=== PATIENT | male | born 1990 | race Caucasian/White ===

== ENCOUNTER 2016-08-19 15:48 | Emergency (ER) | payer BC ==
[2016-08-19 15:55] VITALS: BP 135/74; BMI 30.4
[2016-08-19] MEDS ORDERED: PHENERGAN INJ 25 MG IV ONE (18:40)
[2016-08-19] MEDS ORDERED: TORADOL 30 MG VIAL IVP ONE (18:41)
[2016-08-19] MEDS ORDERED: DECADRON INJ IM ONE (18:41)
[2016-08-19] MEDS ORDERED: NS 500 ML IV 500 ML IV ONE (18:42)
--- NOTE | 2016-08-19 18:43 | DR.HEADACH ---
HPI - Time Seen Time seen: 18:35 - Primary Care Physician Primary Care Physician: NFD - Complaint/Symptoms Chief Complaint Doctors Comments: Patient presents with complaint of a migraine headache onset earlier today. He has had similar headaches before and relieved by Fioricet. He reports the the headache occipital radiating to forehead associated with vomiting. Made better by quietness Chief Complaint:: MIGRAINE, N/V - Source History Provided: Patient - Mode of Arrival Mode of Arrival: Ambulatory - Timing Onset of Chief Complaint: 08/19/16 - Location Headache Location: Frontal - Severity Headache Severity: Severe PMH - PMH Past Medical History: No Past Medical History: Headaches Past Surgical History: Yes Surgical History: Lithotripsy - Family History History of Family Medical Conditions: Yes Family Medical History: Cancer, [place], Hypertension - Social History Does any household member use tobacco: No Alcohol Use: None, Occasionally Do you use any recreational Drugs:: No Lives With: Spouse Lives Where: Home - infectious screening In the last 2 months have you had wt loss of >10#?: NO Have you had fever, night sweats or hemotysis?: No Have you traveled outside the country in the last 6 months?: No Isolation: Standard ROS - Review of Systems Constitutional: No Symptoms Reported Eyes: No Symptoms Reported ENTM: No Symptoms Reported Respiratoy: No Symptoms Reported Cardiovascular: No Symptoms Reported Gastrointestinal/Abdominal: No Symptoms Reported Genitourinary: No Symptoms Reported Neurological: No Symptoms Reported Musculoskeletal: No Symptoms Reported Integumentary: No Symptoms Reported Hematologic/Lymphatic: No Symptoms Reported Endocrine: No Symptoms Reported Psychiatric: No Symptoms Reported All Other Systems: Reviewed and Negative PE - Vital Signs Vitals: Temperature 97.8 F Pulse Rate 143 Respiratory Rate 18 Blood Pressure 135/74 O2 Sat by Pulse Oximetry 96 - General Limitations: No Limitations General Appearance: Alert, In No Apparent Distress - Head Head Exam: Normal Inspection, Atraumatic - Eyes Eye exam: Normal Appearance, PERRL, EOMI Eyelids: Normal Inspection: Bilateral Pupils: Regular, Round: Bilateral Sclera/Conjunctival: Normal Inspection: Bilateral - ENT ENT Exam: Normal Exam, Normal Oropharynx External Ear Exam: Normal External Inspection TM/Canal Exam: Bilateral Normal Nose Exam: Normal Nose Exam, Sinus Tenderness Mouth Exam: Normal Inspection Teeth Exam: Normal Inspection Throat Exam: Normal Inspection - Neck Neck Exam: Normal Inspection - Chest Chest Inspection: Normal Inspection - Respiratory Respiratory Exam: Normal Lung Sounds Bilat Respiratory Exam: Bilateral Clear to Auscultation - Cardiovascular Cardiovascular Exam: Regular Rate, Normal Rhythm - Abdominal Exam Abdominal Exam: Normal Inspection, Normal Bowel Sounds Abdominal Tenderness: negative: RUQ, RLQ, LUQ, LLQ, Epigastrium, Suprapubic, Diffuse, Mild, Moderate, Severe, Other - Extremities Extremities Exam: Normal Inspection, Full ROM - Back Back Exam: Normal Inspection, Full ROM - Neurologic Neurological Exam: Alert, Oriented X3, CN II-XII Intact - Psychiatric Psychiatric Exam: Normal Affect, Normal Mood - Skin Skin Exam: Warm, Dry, Intact - Diagnosis Discharge Problem: Migraine Qualifiers: Migraine type: without aura Status migrainosus presence: without status migrainosus Intractability: not intractable Qualified Code(s): G43.009 - Migraine without aura, not intractable, without status migrainosus - Discharge Plan Condition: Good - Follow ups/Referrals Follow ups/Referrals: NFD,None [Primary Care Provider] - 3 days - Instructions
[2016-08-19] MEDS ORDERED: PHENERGAN INJ 25 MG ONE (18:46)
[2016-08-19] MEDS ORDERED: TORADOL 30 MG VIAL ONE (18:46)
[2016-08-19] MEDS ORDERED: NS 1000 ML 1,000 ML ONE (18:46)
[2016-08-19] MEDS ORDERED: DECADRON INJ ONE (18:46)
[2016-08-19] MEDS ORDERED: FIORICET TAB PO ONE ×2 (20:09→20:11)
== END 2016-08-19 20:20 | disposition home or self-care (01) ==
LOC: ER 15:48
DX: G43.009 Migraine without aura, not intractable, without status migrainosus (principal)
CPT/HCPCS: 96365; 96367; 96372; 96374; 96375; 99283; A4222; J1100; J1885; J2550

== ENCOUNTER 2016-09-02 04:49 | Emergency (ER) | payer BC ==
[2016-09-02 05:00] VITALS: BMI 30.4
[2016-09-02] MEDS ORDERED: NUBAIN INJ 10 IVP ONE (05:05)
[2016-09-02] MEDS ORDERED: PHENERGAN INJ 25 MG IVP ONE (05:05)
[2016-09-02 05:08] LABS: BILIRUBIN,URINE NEGATIVE (NEGATIVE); BLOOD/HEMOGLOBIN,URINE 5+ (NEGATIVE); GLUCOSE, URINE NEGATIVE (NEGATIVE); KETONES,URINE NEGATIVE (NEGATIVE); LEUKOCYTE ESTERASE ,URINE NEGATIVE (NEGATIVE); NITRITES,URINE NEGATIVE (NEGATIVE); PROTEIN,URINE 1+ (NEGATIVE); UROBILINOGEN,URINE NORMAL (NORMAL)
[2016-09-02] MEDS ORDERED: NUBAIN INJ 10 ONE ×2 (05:09→07:05)
[2016-09-02] MEDS ORDERED: PHENERGAN INJ 25 MG ONE ×2 (05:09→07:06)
[2016-09-02] MEDS ORDERED: NS 1000 ML 1,000 ML ONE (05:23)
[2016-09-02 05:25] LABS: APPEARANCE,URINE HAZY (CLEAR); BACTERIA,URINE NEGATIVE /HPF (NEGATIVE); COLOR,URINE YELLOW (YELLOW); RBC,URINE 80-100 /HPF (NEGATIVE); SQUAMOUS EPITHELIAL CELL,UR FEW /HPF (NEGATIVE)
[2016-09-02] MEDS ORDERED: NS 1000 ML 1,000 ML IV ONE (05:27)
[2016-09-02 05:30] VITALS: BP 125/67
--- NOTE | 2016-09-02 05:32 | DR.GENAD ---
HPI - PCP Primary Care Physician: Lauren Lopez - HPI Comment HPI Comment: Abdomianl pain- Lt. flank - Complaint/Symptoms Chief Complaint Doctors Comments: Lt. flank pain onset last evening (about 1800 hrs.) during family / holiday gathering. It was a sudden sharp ache. Vety brief in duration. Again, at home he had a repeat attack at 2300 hrs. This was a dull ache in nature and it has been pretty steady since. He took a hot shower and that helped as he was able to fall asleep at about 0100 hrs. today. The pain awakened him again this a.m. and his spouse persuaded him to come to the [facility]. He relates a hx. of nephrolithiasis. Chief Complaint:: kidney stone Self Treatment fo Chief Complaint: Hot shower - Nurses notes reviewed Nurses Notes Review: Yes - Source History Provided: Patient - Mode of Arrival Mode of Arrival: Ambulatory - Timing Onset of Chief Complaint: 09/02/16 Came on: Gradually - Duration Duration: Constant How lon Duration: Hours - Location Location: Lt. flank - Severity Severity: Severe - Modifying Factors Worsens:: moving Improves:: hot shower, earlier - Associated Signs and Symptoms Associated Signs and Symptoms: nausea PMH - PMH Past Medical History: Yes Past Medical History: Headaches, Kidney Stones Past Medical History Comment: Nephrolithiasis Past Surgical History: Yes Surgical History: Lithotripsy - Family History History of Family Medical Conditions: Yes Family Medical History: Cancer, [place], Hypertension - Social History Does patient currently use any type of tobacco product: No Have you used tobacco products in the last 12 months: No Type of Tobacco Use: None Does any household member use tobacco: No Alcohol Use: Occasionally Do you use any recreational Drugs:: No Lives With: Family Lives Where: Home - infectious screening In the last 2 months have you had wt loss of >10#?: NO Have you had fever, night sweats or hemotysis?: No Have you traveled outside the country in the last 6 months?: No Isolation: Standard ROS - Review of Systems Eyes: No Symptoms Reported ENTM: No Symptoms Reported Respiratoy: No Symptoms Reported Cardiovascular: No Symptoms Reported Gastrointestinal/Abdominal: Nausea Genitourinary: See HPI Neurological: No Symptoms Reported Musculoskeletal: No Symptoms Reported Integumentary: No Symptoms Reported Hematologic/Lymphatic: No Symptoms Reported Endocrine: No Symptoms Reported Psychiatric: No Symptoms Reported PE - Vital Signs Vitals: Temperature 98.8 F Pulse Rate 101 Respiratory Rate 24 Blood Pressure 125/67 O2 Sat by Pulse Oximetry 99 - General Limitations: No Limitations General Appearance: Alert, In Distress (appears to be in pain) - Head Head Exam: Normal Inspection - Eyes Eye exam: Normal Appearance, PERRL, EOMI - ENT ENT Exam: Normal Exam External Ear Exam: Normal External Inspection TM/Canal Exam: Bilateral Normal Nose Exam: Normal Nose Exam Mouth Exam: Normal Inspection Throat Exam: Normal Inspection - Neck Neck Exam: Normal Inspection, Full ROM - Chest Chest Inspection: Normal Inspection - Respiratory Respiratory Exam: Normal Lung Sounds Bilat Respiratory Exam: Bilateral Clear to Auscultation - Cardiovascular Cardiovascular Exam: Regular Rate, Normal Rhythm, +S1, +S2 - Abdominal Exam Abdominal Exam: Normal Inspection, Normal Bowel Sounds, Soft, Tenderness (Lt flank. LT. CVA tenderness present.) Abdominal Tenderness: Other (Lt. flank) - Extremities Extremities Exam: Normal Inspection, Full ROM - Back Back Exam: Normal Inspection - Neurologic Neurological Exam: Alert, Oriented X3 - Psychiatric Psychiatric Exam: Normal Affect, Normal Mood - Skin Skin Exam: Warm, Dry, Intact, Normal Color MDM - Differential Diagnosis Differential Diagnosis: Nephro-uretrolithiasis Course - Treatment Treatment: IVF, analgesic, anti-emetic - Reevaluation 1st: Improved (at 0615 hrs.) 2nd: Unchanged - Consultation Called: 06:35 Call Returned: 06:35 Consultation Comments: The pts'. presentation and findings were reviewed with Dr. Timmons, whom the pt. had seen in the past for earlier procedure. Dr. Timmons agrees to see him for care at [facility] for evaluation, therapy and intervention if needed. He asks that he be d/c and come by POV or ambulance to the hospital there. He should have copies od his records, tests and radiology CD with him. He should be NPO - Education/Counseling Education/Counseling: Patient, Family, Education Educated On: Treatment, Diagnosis, Prognosis, Needs for Follow Up (Go to Dr. Timmons's office to await admission to [place], [place] this morning.) ROR - Labs Reviewed Result Diagrams: 09/02/16 05:29 09/02/16 05:29 Laboratory: WBC 10.0 X10^3/uL (3.6-10.0) 09/02/16 05:29 RBC 4.76 X10^6/uL (4.7-6.0) 09/02/16 05:29 Hgb 15.1 g/dL (13.5-18.0) 09/02/16 05:29 Hct 42.1 % (42.0-54.0) 09/02/16 05:29 MCV 88.3 fL (80.0-100.0) 09/02/16 05:29 MCH 31.7 pg (27.0-34.0) 09/02/16 05:29 MCHC 35.9 g/dL (33.0-35.0) H 09/02/16 05:29 RDW 12.8 % (11.6-16.5) 09/02/16 05:29 Plt Count 260 X10^3/uL (150.0-450.0) 09/02/16 05:29 MPV 8.6 fL (7.4-11.0) 09/02/16 05:29 Neut % 69.7 % (42.0-75.0) 09/02/16 05:29 Lymph % 23.3 % (21.0-51.0) 09/02/16 05:29 Whiteside % 6.0 % (0.0-13.0) 09/02/16 05:29 Eos % 0.7 % (0.9-2.9) L 09/02/16 05:29 Baso % 0.3 % (0.2-1.0) 09/02/16 05:29 Neut # 7.0 x10^3/uL (2.2-4.8) H 09/02/16 05:29 Lymph # 2.3 X10^3/uL (1.3-2.9) 09/02/16 05:29 Whiteside # 0.6 x10^3/uL (0.3-0.8) 09/02/16 05:29 Eos # 0.1 x10^3/uL (0.0-0.2) 09/02/16 05:29 Baso # 0.0 X10^3/uL (0.0-0.1) 09/02/16 05:29 Absolute Nucleated RBC 0.0 /100WBC 09/02/16 05:29 Sodium 143 mmol/L (136-145) 09/02/16 05:29 Corrected Sodium 144 mmol/L (136-145) 09/02/16 05:29 Potassium 3.9 mmol/L (3.5-5.1) 09/02/16 05:29 Chloride 105 mmol/L (98-107) 09/02/16 05:29 Carbon Dioxide 26.8 mmol/L (21-32) 09/02/16 05:29 BUN 12 mg/dL (7-18) 09/02/16 05:29 Creatinine 1.26 mg/dL (0.70-1.30) 09/02/16 05:29 Est GFR (MDRD) Af Amer > 60 (>60) 09/02/16 05:29 Est GFR (MDRD) Non-Af > 60 (>60) 09/02/16 05:29 Glucose 122 mg/dL (65-99) H 09/02/16 05:29 Calcium 8.8 mg/dL (8.5-10.1) 09/02/16 05:29 Corrected Calcium TNP 09/02/16 05:29 Total Bilirubin 0.40 mg/dL (0.2-1.0) 09/02/16 05:29 AST 31 Units/L (15-37) 09/02/16 05:29 ALT 75 Units/L (12-78) 09/02/16 05:29 Alkaline Phosphatase 80 Units/L (46-116) 09/02/16 05:29 Total Protein 7.6 g/dL (6.4-8.2) 09/02/16 05:29 Albumin 4.1 g/dL (3.4-5.0) 09/02/16 05:29 Globulin 3.5 g/dL (2.5-4.5) 09/02/16 05:29 Albumin/Globulin Ratio 1.2 Ratio (1.1-2.1) 09/02/16 05:29 Amylase 45 Units/L (25-115) 09/02/16 05:29 Lipase 94 Units/L (73-393) 09/02/16 05:29 Specimen Type Clean catch urine 09/02/16 05:00 Urine Color Yellow (YELLOW) 09/02/16 05:00 Urine Appearance Hazy (CLEAR) 09/02/16 05:00 Urine pH 7.0 (5.0 - 8.0) 09/02/16 05:00 Ur Specific [place] 1.010 (1.000-1.030) 09/02/16 05:00 Urine Protein 1+ (NEGATIVE) 09/02/16 05:00 Urine Glucose (UA) Negative (NEGATIVE) 09/02/16 05:00 Urine Ketones Negative (NEGATIVE) 09/02/16 05:00 Urine Occult Blood 5+ (NEGATIVE) 09/02/16 05:00 Urine Nitrite Negative (NEGATIVE) 09/02/16 05:00 Urine Bilirubin Negative (NEGATIVE) 09/02/16 05:00 Urine Urobilinogen Normal (NORMAL) 09/02/16 05:00 Ur Leukocyte Esterase Negative (NEGATIVE) 09/02/16 05:00 Urine RBC 80-100 /HPF (NEGATIVE) 09/02/16 05:00 Urine WBC 0-3 /HPF (NEGATIVE) 09/02/16 05:00 Ur Squamous Epith Cells Few /HPF (NEGATIVE) 09/02/16 05:00 Urine Bacteria Negative /HPF (NEGATIVE) 09/02/16 05:00 Ur Culture Indicated? No/not indicated 09/02/16 05:00 - XRAY XRAY Interpreted by: Radiologist (A 6.4 mm obstructing proximal Lt. ureteral stone; a 1 mm non-obstructing Lt. mid-pole ernal stone. ) - Diagnosis Discharge Problem: Left nephrolithiasis, Ureterolithiasis, Ureter colic - Discharge Plan Disposition: Disch/Tx to Hospital Condition: Stable - Follow ups/Referrals Follow ups/Referrals: DAMIEN,Beatris [Primary Care Provider] - 3 days (today) WALTER TIMMONS [CONSULTING PHYSICIAN] - 1 day (to be seen today) - Instructions
[2016-09-02 05:51] LABS: ALANINE AMINOTRANSFERASE 75 Units/L (12-78); ALBUMIN 4.1 g/dL (3.4-5.0); ALKALINE PHOSPHATASE 80 Units/L (46-116); AMYLASE 45 Units/L (25-115); ASPARTATE AMINO TRANSFERASE 31 Units/L (15-37); BLOOD UREA NITROGEN 12 mg/dL (7-18); CALCIUM 8.8 mg/dL (8.5-10.1); CARBON DIOXIDE 26.8 mmol/L (21-32); CHLORIDE 105 mmol/L (98-107); COR NA(FOR HYPERGLY) 144 mmol/L (136-145); CREATININE 1.26 mg/dL (0.70-1.30); GLUCOSE 122 mg/dL (65-99); LIPASE 94 Units/L (73-393); SODIUM 143 mmol/L (136-145); TOTAL PROTEIN 7.6 g/dL (6.4-8.2); eGFR BLACK RACES > 60 (>60); eGFR NON BLACK RACES > 60 (>60)
[2016-09-02 05:57] LABS: BASOPHILS % (AUTO) 0.3 % (0.2-1.0); EOSINOPHILS # (AUTO) 0.1 x10^3/uL (0.0-0.2); EOSINOPHILS % (AUTO) 0.7 % (0.9-2.9); HEMATOCRIT 42.1 % (42.0-54.0); HEMOGLOBIN 15.1 g/dL (13.5-18.0); LYMPHOCYTES # (AUTO) 2.3 X10^3/uL (1.3-2.9); LYMPHOCYTES % (AUTO) 23.3 % (21.0-51.0); MEAN CORPUSCULAR HEMOGLOBIN 31.7 pg (27.0-34.0); MEAN CORPUSCULAR HGB CONC 35.9 g/dL (33.0-35.0); MEAN CORPUSCULAR VOLUME 88.3 fL (80.0-100.0); MEAN PLATELET VOLUME 8.6 fL (7.4-11.0); MONOCYTES # (AUTO) 0.6 x10^3/uL (0.3-0.8); NEUTROPHILS % (AUTO) 69.7 % (42.0-75.0); PLATELET COUNT 260 X10^3/uL (150.0-450.0); RED BLOOD COUNT 4.76 X10^6/uL (4.7-6.0); RED CELL DISTRIBUTION WIDTH 12.8 % (11.6-16.5)
--- NOTE | 2016-09-02 06:24 | CT ---
HISTORY: Abdominal pain Study: CT abdomen pelvis without contrast Comparison: July 06, 2013 June 30, 2013 Technique: axial non contrast images with coronal and sagittal reformats. Dose reduction procedures were used with MA/kv adjusted for body size. Findings: The lung bases are clear. The liver, adrenal glands, and pancreas are within normal limits to the l imitations of an unenhanced examination. There is a 2.27 centimeter lesion of low attenuation within the spleen likely representing a splenic cyst. This could be confirmed sonographically. This has in creased slightly in size since the prior examination. The right kidney is unobstructed and without s tones. No right ureteral calculi are identified. There is a 1 millimeter left midpole renal calculus , nonobstructing. There is mild left-sided hydronephrosis proximal to a 6.4 millimeter calculus [place] in the proximal left ureter at the level of the L2-3 interspace. More distally the ureter is nor mal. The no significant intraperitoneal or retroperitoneal lymphadenopathy is identified. The append ix is normal. There are no findings suggestive of diverticulitis or colitis. Examination of the pelv is demonstrated no evidence for pelvic masses, pelvic fluid, or pelvic lymphadenopathy. No bladder a bnormality is identified. No significant skeletal abnormality is identified. IMPRESSION: 6.4 millimeter obstructing proximal left ureteral calculus located at the L2-3 level 1 millimeter nonobstructing left midpole renal calculus 2.27 centimeter lesion of low attenuation within the spleen likely a cyst. This could be confirmed s onographically. Reported By:
[2016-09-02] MEDS ORDERED: NUBAIN INJ 200 MG VIAL MULTIDOSE IVP ONE (07:02)
[2016-09-02] MEDS ORDERED: PHENERGAN INJ 25 MG IV ONE (07:03)
== END 2016-09-02 07:50 | disposition hospice, inpatient (51) ==
LOC: ER 04:49
DX: N20.0 Calculus of kidney (principal); N20.1 Calculus of ureter; N23 Unspecified renal colic
CPT/HCPCS: 36415; 74176; 80053; 81001; 82150; 83690; 85025; 96365; 96374; 96375; 99283; A4216; A4222; J2300; J2550